=== PATIENT | female | born 1955 | race African-American/Black ===

== ENCOUNTER 2016-12-22 18:03 | Emergency (ER) | payer SELFPAY ==
[~2016-12-22] VITALS: Ht 170.2 cm; Wt 85.0 kg
[2016-12-22 18:05] VITALS: BP 135/76
== END 2016-12-22 18:57 | disposition left against medical advice (07) ==
LOC: ER 18:03
DX: R42 Dizziness and giddiness (principal); I10 Essential (primary) hypertension; E78.5 Hyperlipidemia, unspecified
CPT/HCPCS: 99283; Z7610